=== PATIENT | female | born 1975 ===

== ENCOUNTER 2017-03-12 16:11 | Emergency (ER) | payer BC ==
[2017-03-12 16:18] VITALS: BP 124/73; PULSE 71; RESP 18; TEMP 98.6; O2SAT 100
--- NOTE | 2017-03-12 16:37 | ED PDOC ---
HPI: SOB/CHF/COPD Chief Complaint (Nursing): Abdominal Pain Chief Complaint (Provider): Shortness of breath History Per: Patient History/Exam Limitations: no limitations Onset/Duration Of Symptoms: Days (x 2 weeks) Current Symptoms Are (Timing): Still Present Additional Complaint(s): Rylee Ashton is a 41 y/o female with a past medical history diabetes, hypertension, asthma, and gastritis, who presents to the emergency department complaining of progressive shortness of breath and wheezing over the past two weeks. Patient denies cough, fever, and chest pain. Asthma medications were changed by PMD with no relief of symptoms. PMD: Dr. Jonathan Alexander Past Medical History Reviewed: Historical Data, Nursing Documentation, Vital Signs Vital Signs: Last Vital Signs Temp 98.6 F 03/12/17 16:15 Pulse 71 03/12/17 16:15 Resp 18 03/12/17 16:15 BP 124/73 03/12/17 16:15 Pulse Ox 100 03/12/17 16:42 - Medical History PMH: Asthma, Diabetes, Gastritis, HTN - Surgical History Surgical History: No Surg Hx - Family History Family History: States: Unknown Family Hx - Allergies Allergies/Adverse Reactions: Allergies Allergy/AdvReac Type Severity Reaction Status Date / Time No Known Allergies Allergy Verified 03/12/17 16:27 Review of Systems ROS Statement: Except As Marked, All Systems Reviewed And Found Negative Constitutional: Negative for: Fever Cardiovascular: Negative for: Chest Pain Respiratory: Positive for: Shortness of Breath, Wheezing. Negative for: Cough Physical Exam - Reviewed Nursing Documentation Reviewed: Yes Vital Signs Reviewed: Yes - Physical Exam Appears: Positive for: Non-toxic, No Acute Distress Head Exam: Positive for: ATRAUMATIC, NORMAL INSPECTION, NORMOCEPHALIC Skin: Positive for: Normal Color, Warm, Dry Eye Exam: Positive for: Normal appearance Neck: Positive for: Normal, Painless ROM, Supple Cardiovascular/Chest: Positive for: Regular Rate, Rhythm Respiratory: Positive for: Wheezing (Mild expiratory wheezing, left side). Negative for: Rhonchi, Respiratory Distress Gastrointestinal/Abdominal: Positive for: Normal Exam, Soft. Negative for: Tenderness Back: Positive for: Normal Inspection. Negative for: Vertebral Tenderness Extremity: Positive for: Normal ROM, Pedal Edema (+1 ) Neurologic/Psych: Positive for: Alert, Oriented - ECG O2 Sat by Pulse Oximetry: 100 (RA) Pulse Ox Interpretation: Normal Medical Decision Making Medical Decision Making: Time: 16:27 Initial Plan: --Urine test --Urine dipstick --CMP --CPK --Magnesium --CBC --NS IV 1000 ml at 1000 mls/hr --Pending reevaluation Scribe Attestation: Documented by Christy Abebe, acting as a scribe for Alfredo Moore MD Provider Scribe Attestation: All medical record entries made by the Scribe were at my direction and personally dictated by me. I have reviewed the chart and agree that the record accurately reflects my personal performance of the history, physical exam, medical decision making, and the department course for this patient. I have also personally directed, reviewed, and agree with the discharge instructions and disposition.
[2017-03-12] MEDS ORDERED: Sodium Chloride 0.9% 1,000 ML IV STA (16:42)
[2017-03-12 17:38] LABS: BASO % 0.6 % (0.0-2.0); EOS # 0.1 K/uL (0.0-0.7); EOS % 2.3 % (0.0-4.0); HEMOGLOBIN 13.6 g/dL (12.0-16.0); LYMPH # 1.9 K/uL (1.0-4.3); LYMPH % 29.6 % (20.0-40.0); MEAN CORPUSCULAR HEMOGLOBIN 26.4 pg (27.0-31.0); MEAN CORPUSCULAR HGB CONC 32.6 g/dL (33.0-37.0); MEAN PLATELET VOLUME 8.5 fl (7.2-11.7); MONO # 0.5 K/uL (0.0-0.8); MONO % 7.8 % (0.0-10.0); NEUT # 3.8 K/uL (1.8-7.0); NEUT % 59.7 % (50.0-75.0); NRBC % 0.1 % (0.0-0.0); RBC 5.15 Mil/uL (3.80-5.20); WHITE BLOOD COUNT 6.4 K/uL (4.8-10.8)
[2017-03-12 17:45] LABS: ALB/GLOB RATIO 1.2 (1.0-2.1); ALBUMIN 4.3 g/dL (3.5-5.0); ALT/SGPT 53 U/L (9-52); AST/SGOT 31 U/L (14-36); BLOOD UREA NITROGEN 15 mg/dl (7-17); CALCIUM 9.3 mg/dL (8.4-10.2); GFR AFRICAN-AMERICAN > 60; GFR NON-AFRICAN AMERICAN 55; MAGNESIUM 2.1 MG/DL (1.6-2.3)
[2017-03-12 19:16] LABS: SQUAMOUS EPITHIAL 2 /hpf (0-5); URINE BACTERIA OCC (<OCC); URINE BILIRUBIN NEGATIVE (NEGATIVE); URINE BLOOD SMALL (NEGATIVE); URINE CLARITY SLIGHTY-CLOUDY (Clear); URINE COLOR YELLOW (YELLOW); URINE GLUCOSE (UA) NEG (Normal); URINE LEUKOCYTE ESTERASE SMALL Leu/uL (Negative); URINE NITRATE NEGATIVE (NEGATIVE); URINE PROTEIN 30 mg/dL (NEGATIVE); URINE UROBILINOGEN 0.2-1.0 mg/dL (0.2-1.0)
--- NOTE | 2017-03-12 19:33 | ED PDOC ---
HPI: Abdomen Time Seen by Provider: 03/12/17 18:00 Chief Complaint (Nursing): Abdominal Pain Chief Complaint (Provider): weakness History Per: Patient (41 y/o female here with bodyaches/diarrhea/nausea x few days. Denies any fevers/chills. Denies any URI/cough/sore throat.) Past Medical History Reviewed: Historical Data, Nursing Documentation, Vital Signs Vital Signs: Last Vital Signs Temp 98.6 F 03/12/17 16:15 Pulse 71 03/12/17 16:15 Resp 18 03/12/17 16:15 BP 124/73 03/12/17 16:15 Pulse Ox 100 03/12/17 19:33 - Medical History PMH: Asthma, Gastritis - Surgical History Surgical History: Cholecystectomy - Family History Family History: States: No Known Family Hx - Allergies Allergies/Adverse Reactions: Allergies Allergy/AdvReac Type Severity Reaction Status Date / Time No Known Allergies Allergy Verified 03/12/17 16:27 Review of Systems ROS Statement: Except As Marked, All Systems Reviewed And Found Negative Physical Exam - Reviewed Nursing Documentation Reviewed: Yes Vital Signs Reviewed: Yes - Physical Exam Appears: Positive for: Well, Non-toxic, No Acute Distress Head Exam: Positive for: ATRAUMATIC, NORMAL INSPECTION, NORMOCEPHALIC Skin: Positive for: Normal Color, Warm, DRY Eye Exam: Positive for: EOMI, Normal appearance, PERRL ENT: Positive for: Normal ENT Inspection Neck: Positive for: Normal, Painless ROM Cardiovascular/Chest: Positive for: Regular Rate, Rhythm Respiratory: Positive for: CNT, Normal Breath Sounds Gastrointestinal/Abdominal: Positive for: Normal Exam, Bowel Sounds, Soft Back: Positive for: Normal Inspection Extremity: Positive for: Normal ROM Neurologic/Psych: Positive for: Alert, Oriented - Laboratory Results Result Diagrams: 03/12/17 17:32 03/12/17 17:32 Urine POC: Negative Urine dip results: Positive for: Leukocyte Esterase - ECG O2 Sat by Pulse Oximetry: 100 Disposition - Clinical Impression Clinical Impression: Weakness - Patient ED Disposition Is Patient to be Admitted: No - Disposition Disposition: Routine/Home Disposition Time: 19:54 Condition: FAIR Instructions: Weakness (ED), Viral Syndrome (ED)
== END 2017-03-12 20:20 | disposition home or self-care (01) ==
LOC: H.ER 16:11
DX: B34.9 Viral infection, unspecified (principal); R53.1 Weakness
CPT/HCPCS: 80053; 81003; 82550; 83735; 85025; 87086; 99283; J7040

== ENCOUNTER 2017-12-20 17:02 | Emergency (ER) | payer BC ==
[2017-12-20 17:11] VITALS: RESP 18
[2017-12-20] MEDS ORDERED: Sodium Chloride 0.9% 1,000 ML IV STA (17:55)
--- NOTE | 2017-12-20 18:17 | ED PDOC ---
HPI: Back Time Seen by Provider: 12/20/17 17:35 Chief Complaint (Nursing): Back Pain Chief Complaint (Provider): Back Pain History Per: Patient History/Exam Limitations: no limitations Onset/Duration Of Symptoms: Days (x 21) Additional Complaint(s): 42 years old female presents to the ED with complaints of right flank pain onset three weeks. Patient reports experiencing 2 episodes of diarrhea. She denies any fever or vomiting. PMD: non provided Past Medical History Reviewed: Historical Data, Nursing Documentation, Vital Signs Vital Signs: Last Vital Signs Temp 98.3 F 12/20/17 17:08 Pulse 78 12/20/17 17:08 Resp 18 12/20/17 17:08 BP 163/100 H 12/20/17 17:08 Pulse Ox 100 12/20/17 17:08 - Medical History PMH: Asthma, Gastritis - Surgical History Surgical History: Cholecystectomy, Endoscopy, (x 2) - Family History Family History: States: Unknown Family Hx - Social History Current smoker - smoking cessation education provided: No Alcohol: None Drugs: Denies - Home Medications Home Medications: Ambulatory Orders Medication Instructions Recorded Nitrofurantoin Macrocrystals 100 mg PO BID 5 Days cap 12/20/17 [Macrobid] - Allergies Allergies/Adverse Reactions: Allergies Allergy/AdvReac Type Severity Reaction Status Date / Time No Known Allergies Allergy Verified 03/12/17 16:27 Review of Systems ROS Statement: Except As Marked, All Systems Reviewed And Found Negative Constitutional: Negative for: Fever Gastrointestinal: Positive for: Diarrhea. Negative for: Vomiting Musculoskeletal: Positive for: Back Pain (Right flank) Physical Exam - Reviewed Nursing Documentation Reviewed: Yes Vital Signs Reviewed: Yes - Physical Exam Appears: Positive for: Non-toxic Head Exam: Positive for: ATRAUMATIC, NORMOCEPHALIC Skin: Positive for: Normal Color, Warm, Dry Eye Exam: Positive for: Normal appearance, EOMI, PERRL Cardiovascular/Chest: Positive for: Regular Rate, Rhythm. Negative for: Murmur Respiratory: Positive for: Normal Breath Sounds. Negative for: Respiratory Distress Gastrointestinal/Abdominal: Positive for: Normal Exam Back: Positive for: Other (Right flank tenderness) Extremity: Positive for: Normal ROM Neurologic/Psych: Positive for: Alert, Oriented - Laboratory Results Result Diagrams: 12/20/17 19:15 12/20/17 19:15 - ECG O2 Sat by Pulse Oximetry: 100 (RA) Pulse Ox Interpretation: Normal Medical Decision Making Medical Decision Making: Time: 1749 Initial Impression: Abdominal pain, flank pain rule out UTI, stone Initial Plan: --CT Abd/ Pelvis w/o Contrast --Beta HCG --CMP --CBC --NaCl 1,000 ml --Toradol 30 mg IV --Urine C&S -- Infeluenza A B --Urinalysis ____ Time: 1829 Pending workup. Scribe Attestation: Documented by Chayito Johnson, acting as a scribe for Lizett Brumfield MD. Provider Scribe Attestation: All medical record entries made by the Scribe were at my direction and personally dictated by me. I have reviewed the chart and agree that the record accurately reflects my personal performance of the history, physical exam, medical decision making, and the department course for this patient. I have also personally directed, reviewed, and agree with the discharge instructions and disposition. Disposition - Clinical Impression Clinical Impression: UTI (urinary tract infection) - Patient ED Disposition Is Patient to be Admitted: Transfer of Care - Disposition Disposition: Transfer of Care Disposition Time: 19:00 Condition: STABLE Prescriptions: Nitrofurantoin Macrocrystals [Macrobid] 100 mg PO BID 5 Days cap Instructions: Urinary Tract Infections in Adults Forms: [employer] (Serbian) Patient Signed Over To: Radhames Borja
[2017-12-20 18:32] LABS: SQUAMOUS EPITHIAL 1 /hpf (0-5); URINE BACTERIA OCC (<OCC); URINE BILIRUBIN NEGATIVE (NEGATIVE); URINE BLOOD SMALL (NEGATIVE); URINE CLARITY CLEAR (Clear); URINE COLOR STRAW (YELLOW); URINE GLUCOSE (UA) NEG (Normal); URINE LEUKOCYTE ESTERASE SMALL Leu/uL (Negative); URINE PROTEIN NEGATIVE (NEGATIVE); URINE UROBILINOGEN 0.2-1.0 mg/dL (0.2-1.0)
[2017-12-20 19:24] LABS: BASO % 0.4 % (0.0-2.0); EOS # 0.2 K/uL (0.0-0.7); EOS % 2.5 % (0.0-4.0); HEMOGLOBIN 13.2 g/dL (12.0-16.0); LYMPH % 30.4 % (20.0-40.0); MEAN CELL VOLUME 79.9 fl (81.0-99.0); MEAN CORPUSCULAR HEMOGLOBIN 26.1 pg (27.0-31.0); MEAN CORPUSCULAR HGB CONC 32.6 g/dL (33.0-37.0); MEAN PLATELET VOLUME 8.6 fl (7.2-11.7); MONO # 0.5 K/uL (0.0-0.8); MONO % 8.3 % (0.0-10.0); NEUT # 3.8 K/uL (1.8-7.0); NEUT % 58.4 % (50.0-75.0); RBC 5.07 Mil/uL (3.80-5.20); RED CELL DISTRIBUTION WIDTH 15.5 % (11.5-14.5); WHITE BLOOD COUNT 6.5 K/uL (4.8-10.8)
--- NOTE | 2017-12-20 19:30 | CT ---
PROCEDURE: CT Abdomen and Pelvis without intravenous contrast HISTORY: abd pain COMPARISON: None. TECHNIQUE: Axial and reformatted coronal and sagittal CT images of the abdomen and pelvis were obtained without IV or oral contrast administration.. Contrast Dose: 0 Radiation dose: Total exam DLP = Total exam DLP = 782.66 mGy-cm. This CT exam was performed using one or more of the following dose reduction techniques: Automated exposure control, adjustment of the mA and/or kV according to patient size, and/or use of iterative reconstruction technique. FINDINGS: LOWER THORAX: No evidence of acute pathology at the lung bases. LIVER: No evidence of acute pathology or suspicious mass in the liver in this non contrast enhanced study. GALLBLADDER AND BILE DUCTS: Patient status post prior cholecystectomy. PANCREAS: Unremarkable. No gross lesion or ductal dilatation. SPLEEN: Unremarkable. ADRENALS: Unremarkable. No mass. KIDNEYS AND URETERS: There are multiple foci of calcification noted in the kidneys likely involving the pyramids highly suspicious for nephrocalcinosis. No evidence of hydronephrosis or hydroureter. VASCULATURE: Unremarkable. No aortic aneurysm. BOWEL: Unremarkable. No obstruction. No gross mural thickening. APPENDIX: No evidence of appendicitis PERITONEUM: There is no evidence of free fluid or free air in the abdomen and pelvis. Mesenteric fat stranding noted in the mid abdomen around the mesenteric root. LYMPH NODES: There are mildly enlarged mesenteric lymph nodes noted at the mid abdomen. BLADDER: Unremarkable. REPRODUCTIVE: The uterus is mildly enlarged heterogeneous may contains fibroids. BONES: No acute fracture. OTHER FINDINGS: None. IMPRESSION: Multiple foci of calcification in the renal cortex likely in the pyramids highly suspicious for nephrocalcinosis. No evidence of hydronephrosis or hydroureter. Mesenteric fat stranding and haziness noted in the mid abdomen associated with mildly enlarged mesenteric lymph nodes. Findings are nonspecific and the possibility of missed Rosanna mesentery should be considered. Further evaluation and follow-up reassessment is recommended. Enlarged heterogeneous uterus may contains fibroids.
[2017-12-20 19:39] LABS: ALB/GLOB RATIO 1.2 (1.0-2.1); ALBUMIN 4.1 g/dL (3.5-5.0); ALT/SGPT 40 U/L (9-52); AST/SGOT 29 U/L (14-36); BLOOD UREA NITROGEN 15 mg/dl (7-17); CALCIUM 9.6 mg/dL (8.4-10.2); GFR AFRICAN-AMERICAN > 60; GFR NON-AFRICAN AMERICAN > 60
--- NOTE | 2017-12-20 20:36 | ED PDOC ---
"- Laboratory Results Result Diagrams: 12/20/17 19:15 12/20/17 19:15 - ECG O2 Sat by Pulse Oximetry: 100 (RA) Pulse Ox Interpretation: Normal Medical Decision Making Medical Decision MakinPM: Patient was endorsed to me pending CT and re-eval 8PM: EXAM: CT Abdomen and Pelvis Without Intravenous Contrast EXAM DATE/TIME: 12/20/2017 5:56 PM CLINICAL HISTORY: 42 years old, female; Pain; Abdominal pain; Flank; Right; Prior surgery; Surgery date: 6+ months; Surgery type: Cholecystectomy, x2, ; additional info: Abd pain TECHNIQUE: Axial computed tomography images of the abdomen and pelvis without intravenous contrast. All CT scans at this facility use one or more dose reduction techniques, viz.: automated exposure control; ma/kV adjustment per patient size (including targeted exams where dose is matched to indication; i.e. head); or iterative reconstruction technique. Coronal and sagittal reformatted images were created and reviewed. COMPARISON: No relevant prior studies available. FINDINGS: LUNG BASES: No significant abnormality seen. ABDOMEN: LIVER: No acute abnormality of the liver identified. GALLBLADDER AND BILE DUCTS: Cholecystectomy clips. No evidence of significant biliary ductal dilatation. PANCREAS: No CT evidence of acute pancreatitis. SPLEEN: No acute abnormality of the spleen identified. ADRENALS: No acute abnormality of the adrenal glands identified. KIDNEYS AND URETERS: Bilateral renal calcifications, with an appearance most compatible with bilateral medullary nephrocalcinosis. No evidence of hydroureteronephrosis. No obstructing stones are seen. STOMACH AND BOWEL: No acute abnormality of the stomach, small bowel or colon identified. No evidence of bowel obstruction. PELVIS: APPENDIX: Appendix is seen, and is within normal limits in appearance. BLADDER: No acute abnormality of the bladder identified. GONZALEZ MONTALVO | Final Radiology Report CONFIDENTIALITY STATEMENT This report is intended only for use by the referring physician, and only in accordance with law. If you received this in error, call [phone]. Page 2 of 2 REPRODUCTIVE: Right ovary appears located posteriorly, in the cul-de-sac. No evidence of large adnexal masses. No acute abnormality of the uterus identified. ABDOMEN and PELVIS: INTRAPERITONEAL SPACE: No evidence of free air or free fluid. BONES/JOINTS: No acute fractures or other acute bony abnormality noted. SOFT TISSUES: Small umbilical hernia, containing only fat. VASCULATURE: No evidence of abdominal aortic aneurysm. No evidence of periaortic hemorrhage. LYMPH NODES: Mild mesenteric lymphadenopathy. Most of the lymph nodes seen are small in size, however, the number present is abnormal. There is also stranding of the mesenteric fat, abutting the lymph nodes. No evidence of diffuse pathologic lymphadenopathy. IMPRESSION: - Mild mesenteric lymphadenopathy, with stranding of the adjacent mesenteric fat. Findings are suspicious for mesenteric adenitis, in an acute setting. - Otherwise, no evidence of significant acute process. 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 No evidence of obstructive nephrolithiasis. - See above for remaining findings. Thank you for allowing us to participate in the care of your patient. Dictated and Authenticated by: Dona Hauser MD 12/20/2017 7:55 PM Eastern Time ([place] & [place]) Patient seen at bedside, states that she feels much better. Vitals stable, well appearing, states she has a transit worker named Dr. Alexander in [facility] who she will followup with, explained results of CT to patient and need for further evaluation with nephrology, also explained UTI/possible pyelo. Will treat with ceftriaxone and d/c with course of ABx. Patient states she will call Dr. Alexander tomorrow for followup purposes, return precautions given, patient well appearing, ambulatory upon discharge. Disposition - Clinical Impression Clinical Impression: UTI (urinary tract infection) - POA Present On Arrival: None - Disposition Disposition: Routine/Home Disposition Time: 20:38 Condition: IMPROVED Prescriptions: Nitrofurantoin Macrocrystals [Macrobid] 100 mg PO BID 5 Days cap Instructions: Urinary Tract Infections in Adults Forms: [facility] (Vietnamese)"
[2017-12-20] MEDS ORDERED: cefTRIAXone (Rocephin) 1 gm Inj ONE (21:04)
[2017-12-20 22:44] VITALS: BP 142/86; PULSE 71; TEMP 98.1
[2017-12-21 16:12] VITALS: O2SAT 100
== END 2017-12-20 22:25 | disposition home or self-care (01) ==
LOC: H.ER 17:02
DX: N39.0 Urinary tract infection, site not specified (principal)
CPT/HCPCS: 74176; 80053; 81003; 81025; 84702; 85025; 87040; 87086; 96365; 99283; J0696; J1885; J7040